=== PATIENT | male | born 1960 | race Two or more races ===

== ENCOUNTER 2022-01-19 01:38 | Emergency (ER) | payer OTHER, BC ==
[2022-01-19 02:11] VITALS: BMI 29.5
[2022-01-19 03:28] LABS: BASO % 0.4 % (0-2.0); EOS % 0.9 % (0-4.5); HEMATOCRIT 39.8 % (35.4-49); LYMPH % 9.9 % (8-40); MCH 29.9 pg (25.7-33.7); MCHC 35.2 g/dl (32.0-35.9); MEAN CELL VOLUME 84.9 fl (80-96); MEAN PLT VOLUME 8.5 fl (7.5-11.1); MONO % 9.1 % (3.8-10.2); NEUT % 79.7 % (42.8-82.8); PLATELET COUNT 150 10^3/uL (134-434); RBC 4.69 M/mm3 (4.00-5.60); RDW 13.9 % (11.9-15.9); VENOUS BASE EXCESS 0.7 mmol/L (-2-2); VENOUS PCO2 43.1 mmHg (38-52); VENOUS PH 7.396 (7.310-7.410); WHITE BLOOD COUNT 7.3 K/mm3 (4.0-10.0)
[2022-01-19 03:48] LABS: CALCIUM 8.7 mg/dL (8.5-10.1)
[2022-01-19 03:49] LABS: ALBUMIN 3.9 g/dl (3.4-5.0); BLOOD UREA NITROGEN 11.6 mg/dL (7-18)
[2022-01-19 03:53] LABS: BILIRUBIN,TOTAL 2.3 mg/dL (0.2-1)
[2022-01-19 03:57] LABS: N-TERMINAL BNP 42.3 pg/ml (5-125)
[2022-01-19] MEDS ORDERED: CEFTRIAXONE 1 GM in DEXTROSE 5%-WATER - 100 ML IVPB ONE (04:20)
[2022-01-19] MEDS ORDERED: AZITHROMYCIN IVPB 500 MG in DEXTROSE 5%-WATER - 250 ML IVPB ONE (04:20)
[2022-01-19] MEDS ORDERED: CEFTRIAXONE 1 GM/50 ML BAG ONE (06:17)
[2022-01-19] MEDS ORDERED: AZITHROMYCIN IVPB 500 MG/250 ML BAG IVPB ONE (06:36)
[2022-01-19] MEDS ORDERED: DEXAMETHASONE SOD PHOSPHATE 10 MG/1 ML VIAL IM ONE (07:13)
[2022-01-19] MEDS ORDERED: ALBUTEROL SO4 2.5/IPRATROPIUM 0.5 INH SOL 3 ML VIAL.NEB. NEB ONE ×2 (07:13→09:13)
[2022-01-19] MEDS ORDERED: DEXAMETHASONE SOD PHOSPHATE 10 MG/1 ML VIAL ONE (09:13)
[2022-01-19 11:31] VITALS: BP 110/73; PULSE 97; TEMP 97.6
== END 2022-01-19 11:41 | disposition home or self-care (01) ==
LOC: JER 01:38
PROC: 3E0F7GC Introduction of Other Therapeutic Substance into Respiratory Tract, Via Natural or Artificial Opening (ICD-10-PCS; principal; 2022-01-19)
PROC: 3E03329 Introduction of Other Anti-infective into Peripheral Vein, Percutaneous Approach (ICD-10-PCS; 2022-01-19)
PROC: 3E03329 Introduction of Other Anti-infective into Peripheral Vein, Percutaneous Approach (ICD-10-PCS; 2022-01-19)
PROC: 3E033GC Introduction of Other Therapeutic Substance into Peripheral Vein, Percutaneous Approach (ICD-10-PCS; 2022-01-19)
DX: R05.1 Acute cough (principal); R06.02 Shortness of breath
CPT/HCPCS: 0241U-QW; 36415; 71046-TC-FY; 71275-TC; 80053; 82803; 83735; 83880; 84484; 85025; 85379; 87040; 93005; 93010; 99285-25; J1100